=== PATIENT | male | born 1990 | race American Indian/Alaskan Native ===

== ENCOUNTER 2017-12-29 14:41 | Emergency (ER) | payer OTHER ==
[2017-12-29 14:52] VITALS: BP 148/64; PULSE 78; TEMP 98; BMI 34.2
--- NOTE | 2017-12-29 14:53 | PDOC ---
Rapid Medical Evaluation Chief Complaint: Cold Symptoms Time Seen by Provider: 12/29/17 14:50 Medical Evaluation: Allergies Allergy/AdvReac Type Severity Reaction Status Date / Time Sulfa (Sulfonamide Allergy Mild Hives Verified 12/29/17 14:48 Antibiotics) [Sulfa(Sulfonamide Antibiotics)] 12/29/17 14:52 I have performed a brief in-person evaluation of this patient. The patient presents with a chief complaint of: cough with naal congestion X 1wk Pertinent physical exam findings: CTA, S1/S2, RRR I have ordered the following:none The [facility] Discharge Disposition - Referrals Referrals: Regino Juarez [Primary Care Provider] - - Patient Instructions - Post Discharge Activity
--- NOTE | 2017-12-29 16:09 | PDOC ---
History of Present Illness - General Chief Complaint: Cold Symptoms Stated Complaint: LEFT ARM PAIN Time Seen by Provider: 12/29/17 14:50 History Source: Patient Exam Limitations: No Limitations - History of Present Illness Initial Comments: 12/29/17 16:04 Patient is here with complaints of left arm pain and associated cold symptoms. States has been sneezing and coughing for approximately one week without fevers. Smokes less than a pack a day Timing/Duration: reports: intermittent Severity: reports: mild Associated Symptoms: reports: fever/chills, headache, nasal congestion Past History - Travel Traveled outside of the country in the last 30 days: No Close contact w/someone who was outside of country & ill: No - Past Medical History Allergies/Adverse Reactions: Allergies Allergy/AdvReac Type Severity Reaction Status Date / Time Sulfa (Sulfonamide Allergy Mild Hives Verified 12/29/17 14:48 Antibiotics) [Sulfa(Sulfonamide Antibiotics)] Home Medications: Ambulatory Orders Azithromycin [Zithromax -] 250 mg PO UTDICT #6 tab 12/29/17 COPD: No DVT: No Dementia: No GI Disorders: Yes (GALLSTONES) - Surgical History Cholecystectomy: Yes (2011) - Immunization History Td Vaccination: (unknown) Immunization Up to Date: Yes - Suicide/Smoking/Psychosocial Hx Smoking Status: Yes Smoking History: Current every day smoker Years of Tobacco Use: 6 Number of Cigarettes Smoked Daily: 10 Cigars Per Day: 0 Information on smoking cessation initiated: Yes 'Breaking Loose' booklet given: 12/29/17 Hx Alcohol Use: No Drug/Substance Use Hx: No Substance Use Type: None Hx Substance Use Treatment: No Respiratory Specific PMHX - Complaint Specific PMHX Angina: No Review of Systems - Review of Systems Able to Perform ROS?: Yes Is the patient limited [place]an proficient: Yes Constitutional: Yes: Symptoms Reported, See HPI, Loss of Appetite, Malaise. No : Chills, Fever HEENTM: Yes: See HPI. No: Symptoms Reported Respiratory: Yes: Symptoms reported, See HPI, Cough (with yellow phlegm ). No: Wheezing Musculoskeletal: Yes: Symptoms Reported, See HPI, Joint Pain All Other Systems: Reviewed and Negative *Physical Exam - Vital Signs Last Vital Signs Temp Pulse Resp BP Pulse Ox 98.0 F 78 18 148/64 100 12/29/17 14:49 12/29/17 14:49 12/29/17 14:49 12/29/17 14:49 12/29/17 14:49 - Physical Exam General Appearance: Yes: Nourished, Appropriately Dressed. No: Apparent Distress HEENT: positive: DENNY, TMs Normal (bilateral congestion with poor landmarks noted and some dusky discoloration), Pharynx Normal, Nasal Congestion, Rhinorrhea, Sinus Tenderness (frontal sinus tenderness). negative: Normal ENT Inspection Neck: positive: Supple. negative: Tender, Lymphadenopathy (R), Lymphadenopathy (L) Respiratory/Chest: positive: Lungs Clear (but coarse insp and exp breathsounds ) Gastrointestinal/Abdominal: positive: Normal Bowel Sounds, Soft. 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, Fully Oriented, Alert, Normal Mood/ Affect, Normal Response, Motor Strength 5/5 Heart Score/ECG Review - ECG Intrepretation Rhythm: Regular Rhythm - ST and T Non Specific ST-T Wave changes: No - ECG Impressions Normal ECG: Yes Non-specific ST Elevation: No Ischemic Changes: No *DC/Admit/Observation/Transfer Diagnosis at time of Disposition: Bronchitis - Discharge Dispostion Disposition: HOME Condition at time of disposition: Stable Decision to Admit order: No - Referrals Referrals: Regino Juarez [Primary Care Provider] - - Patient Instructions Printed Discharge Instructions: DI for Acute Bronchitis Additional Instructions: Rest, drink lots of fluids: Teas, water, soups, Pedialyte Saltwater gargles Steamy showers/seem to face break up mucus Avoid contact with others until fevers and cough resolved Lots of handwashing and good hygiene Continue [id number]-[id number]-brfpxsy medications for symptomatic relief Tylenol or Motrin for fever and pain Start azithromycin for worsened fevers, purulent drainage cough production, headache earache or sore throat pain worsens. Followup with private physician in one to 2 days as needed Return to emergency department for worsened symptoms, fevers, dehydration - Post Discharge Activity Forms/Work/School Notes: Back to Work
--- NOTE | 2017-12-31 13:06 | EKG ---
Test Reason : Blood Pressure : / mmHG Vent. Rate : 072 BPM Atrial Rate : 072 BPM P-R Int : 152 ms QRS Dur : 102 ms QT Int : 386 ms P-R-T Axes : 017 049 029 degrees QTc Int : 422 ms NORMAL SINUS RHYTHM NORMAL ECG WHEN COMPARED WITH ECG OF 14-APR-2013 17:13, NO SIGNIFICANT CHANGE WAS FOUND Confirmed by MARK FAIRBANKS MD ([id number]) on 12/31/2017 1:06:20 PM Referred By: VALERIE Confirmed By:MARK FAIRBANKS MD
== END 2017-12-29 16:27 | disposition home or self-care (01) ==
LOC: JERFT 14:41
DX: J40 Bronchitis, not specified as acute or chronic (principal); F17.210 Nicotine dependence, cigarettes, uncomplicated; Z88.1 Allergy status to other antibiotic agents
CPT/HCPCS: 93005; 93010; 99281-25

== ENCOUNTER 2018-04-28 17:19 | Emergency (ER) | payer OTHER ==
[2018-04-28 17:29] VITALS: BP 141/89; PULSE 80; TEMP 98; BMI 33.6
--- NOTE | 2018-04-28 17:31 | PDOC ---
Rapid Medical Evaluation Chief Complaint: Injury Time Seen by Provider: 04/28/18 17:29 Medical Evaluation: Allergies Allergy/AdvReac Type Severity Reaction Status Date / Time Sulfa (Sulfonamide Allergy Mild Hives Verified 04/28/18 17:25 Antibiotics) [Sulfa(Sulfonamide Antibiotics)] Vital Signs Temp Pulse Resp BP Pulse Ox 98.0 F 80 20 141/89 100 04/28/18 17:25 04/28/18 17:25 04/28/18 17:25 04/28/18 17:25 04/28/18 17:25 04/28/18 17:29 I have performed a brief in-person evaluation of this patient. The patient presents with a chief complaint of: pain and swelling to left great toe s/p heavy object falling on toe while at work Pertinent physical exam findings: moderate tenderness to left great toe. mild tenderness to left great toe I have ordered the following: left foot and toe X-ray The patient will proceed to the ED for further evaluation. Discharge Disposition - Diagnosis Toe injury Qualifiers: Encounter type: initial encounter Laterality: left Qualified Code(s): S99.922A - Unspecified injury of left foot, initial encounter - Referrals - Patient Instructions - Post Discharge Activity
--- NOTE | 2018-04-28 18:13 | PDOC ---
History of Present Illness - General Chief Complaint: Injury Stated Complaint: LEFT FOOT INJURY ON THE JOB Time Seen by Provider: 04/28/18 17:29 - History of Present Illness Initial Comments: 04/28/18 18:08 27-year-old male without comorbidities presents for evaluation of left great toe pain. He states at work earlier today he dropped a piece of large plywood on his left great toe. He complains of pain to the area. Past History - Past Medical History Allergies/Adverse Reactions: Allergies Allergy/AdvReac Type Severity Reaction Status Date / Time Sulfa (Sulfonamide Allergy Mild Hives Verified 04/28/18 17:25 Antibiotics) [Sulfa(Sulfonamide Antibiotics)] Home Medications: Ambulatory Orders NK [No Known Home Medication] 04/28/18 COPD: No DVT: No Dementia: No GI Disorders: Yes (GALLSTONES) - Surgical History Cholecystectomy: Yes (2011) - Immunization History Td Vaccination: (unknown) Immunization Up to Date: Yes - Suicide/Smoking/Psychosocial Hx Smoking Status: Yes Smoking History: Current every day smoker Years of Tobacco Use: 6 Have you smoked in the past 12 months: Yes Number of Cigarettes Smoked Daily: 10 Cigars Per Day: 0 Information on smoking cessation initiated: No 'Breaking Loose' booklet given: 12/29/17 Hx Alcohol Use: No Drug/Substance Use Hx: No Substance Use Type: None Hx Substance Use Treatment: No Review of Systems - Review of Systems Musculoskeletal: Yes: See HPI, Joint Pain All Other Systems: Reviewed and Negative *Physical Exam - Vital Signs Last Vital Signs Temp Pulse Resp BP Pulse Ox 98.0 F 80 20 141/89 100 04/28/18 17:25 04/28/18 17:25 04/28/18 17:25 04/28/18 17:25 04/28/18 17:25 - Physical Exam Comments: 04/28/18 18:10 Left foot skin color and temperature are normal does swelling about the great left toe with associated tenderness no gross sensory deficits IPJ of the left toe has decreased range of motion secondary to pain and stiffness. Neurovascularly intact Medical Decision Making - Medical Decision Making 04/28/18 18:11 There is an oblique fracture at the distal phalanx of the great toe. Is a small fracture at the medial base of the bone as well. [place] shoe weight-bear as tolerated with crutches follow-up with orthopedics *DC/Admit/Observation/Transfer Diagnosis at time of Disposition: Toe fracture Toe injury Qualifiers: Encounter type: initial encounter Laterality: left Qualified Code(s): S99.922A - Unspecified injury of left foot, initial encounter - Discharge Dispostion Disposition: HOME Condition at time of disposition: Stable Decision to Admit order: No - Referrals Referrals: Sukhi Bates MD [Staff Physician] - - Patient Instructions Printed Discharge Instructions: Toe Fracture, DI for Toe Fracture Additional Instructions: He may take Tylenol and Motrin for pain. Follow-up with orthopedics in 2-3 days for further evaluation and treatment options. Return to the emergency room should symptoms worsen or go unresolved. He may weight-bear as tolerated with use of a [place] shoeing crutches. - Post Discharge Activity
== END 2018-04-28 18:41 | disposition home or self-care (01) ==
LOC: JERFT 17:19
DX: S92.422A Displaced fracture of distal phalanx of left great toe, initial encounter for closed fracture (principal); S82.892A Other fracture of left lower leg, initial encounter for closed fracture; W20.8XXA Other cause of strike by thrown, projected or falling object, initial encounter; Y93.89 Activity, other specified; Y92.69 Other specified industrial and construction area as the place of occurrence of the external cause; Y99.0 Civilian activity done for income or pay
CPT/HCPCS: 73630-TC-LT; 73660-TC-LT-FY; 99281-25

== ENCOUNTER 2020-01-14 19:00 | Emergency (ER) | payer SELFPAY ==
--- NOTE | 2020-01-14 19:05 | PDOC ---
Rapid Medical Evaluation Time Seen by Provider: 01/14/20 19:02 Medical Evaluation: Allergies Allergy/AdvReac Type Severity Reaction Status Date / Time Sulfa (Sulfonamide Allergy Mild Hives Verified 12/09/19 12:43 Antibiotics) [Sulfa(Sulfonamide Antibiotics)] 01/14/20 19:03 CC: left shoulder and arm heaviness, tingling to 4th and 5th digit Exam: FROM of arm 5/5 strength Plan: ekg Discharge Disposition - Diagnosis Left arm pain - Referrals - Patient Instructions - Post Discharge Activity
[2020-01-14 19:14] VITALS: BP 139/88; PULSE 91; TEMP 98; BMI 34.2
--- NOTE | 2020-01-14 19:25 | PDOC ---
History of Present Illness - General Chief Complaint: Pain, Acute Stated Complaint: CHEST PAIN/ ARM TINGLING Time Seen by Provider: 01/14/20 19:02 History Source: Patient - History of Present Illness Occurred: reports: other Severity: reports: mild Upper Extremity Pain Location: right: shoulder Method of Injury: denies: fell Past History - Medical History Allergies/Adverse Reactions: Allergies Allergy/AdvReac Type Severity Reaction Status Date / Time Sulfa (Sulfonamide Allergy Mild Hives Verified 01/14/20 19:06 Antibiotics) [Sulfa(Sulfonamide Antibiotics)] Home Medications: Ambulatory Orders NK [No Known Home Medication] 04/28/18 COPD: No DVT: No Dementia: No GI Disorders: Yes (GALLSTONES) - Surgical History Cholecystectomy: Yes (2011) - Immunization History Td Vaccination: (unknown) Immunization Up to Date: Yes - Psycho-Social/Smoking History Smoking Status: Yes Smoking History: Current every day smoker Years of Tobacco Use: 6 Have you smoked in the past 12 months: Yes Number of Cigarettes Smoked Daily: 10 Cigars Per Day: 0 Information on smoking cessation initiated: No 'Breaking Loose' booklet given: 12/29/17 - Substance Abuse Hx (Audit-C & DAST Scrn) How often the patient has a drink containing alcohol: 2-4 times / month Score: In Men: 4 or > Positive; In Women: 3 or > Positive: 2 Screen Result (Pos requires Nsg. Audit-10AR): Negative Review of Systems - Review of Systems Constitutional: No: Chills, Fever Respiratory: No: Shortness of Breath Cardiac (ROS): Yes: Chest Pain. No: Lightheadedness, Palpitations Musculoskeletal: Yes: Joint Pain. No: Joint Stiffness Neurological: Yes: Tingling. No: Numbness, Weakness *Physical Exam - Vital Signs Last Vital Signs Temp Pulse Resp BP Pulse Ox 98 F 91 H 18 139/88 100 01/14/20 19:03 01/14/20 19:03 01/14/20 19:03 01/14/20 19:03 01/14/20 19:03 - Physical Exam General Appearance: Yes: Appropriately Dressed. No: Apparent Distress HEENT: positive: Normal Voice Neck: positive: Supple Respiratory/Chest: positive: Lungs Clear, Normal Breath Sounds. negative: Respiratory Distress Cardiovascular: positive: Regular Rate, S1, S2 Extremity: positive: Normal Inspection, Normal Range of Motion. negative: Tender, Swelling Integumentary: positive: Dry, Warm Neurologic: positive: Fully Oriented, Alert, Normal Mood/Affect, Motor Strength 5/5. negative: Numbness, Sensory Deficit Medical Decision Making - Medical Decision Making 01/14/20 19:17 29 yo M, smoker, here w/ L shoulder pain r/t chest on and off x 5 days, regardless of position, mild. Also reports tingling of R fingers. No numbness, UE weakness or neck pain. No sob, diaphoresis, n/v or palpitations. No h/o same. No trauma see exam L shoulder pain Possible radiculopathy Will get EKG given radiation to chest in a smoker PERCs out -Anticipate dc w/ PMD f/u 01/14/20 19:36 EKG wnl. Pt stable for dc w/ PMD f/u. OTC prn pain Discharge - Discharge Information Problems reviewed: Yes Clinical Impression/Diagnosis: Shoulder pain Qualifiers: Chronicity: acute Laterality: left Qualified Code(s): M25.512 - Pain in left shoulder Condition: Good - Follow up/Referral - Patient Discharge Instructions Patient Printed Discharge Instructions: DI for Shoulder Pain Additional Instructions: Please follow up with your PMD if symptoms persist - Post Discharge Activity
--- NOTE | 2020-01-15 11:35 | EKG ---
Test Reason : Blood Pressure : / mmHG Vent. Rate : 071 BPM Atrial Rate : 071 BPM P-R Int : 162 ms QRS Dur : 104 ms QT Int : 396 ms P-R-T Axes : 050 053 027 degrees QTc Int : 430 ms NORMAL SINUS RHYTHM WITH SINUS ARRHYTHMIA NORMAL ECG WHEN COMPARED WITH ECG OF 09-DEC-2019 13:14, NO SIGNIFICANT CHANGE WAS FOUND Confirmed by ALEIDA GALARZA MD ([id number]) on 01/15/2020 11:35:15 AM Referred By: Confirmed By:ALEIDA GALARZA MD
== END 2020-01-14 19:40 | disposition home or self-care (01) ==
LOC: JERFT 19:00 → JER 19:00 → JERFT 19:40
DX: M79.602 Pain in left arm (principal)
CPT/HCPCS: 93005; 93010; 99284-25

== ENCOUNTER 2021-08-23 20:09 | Emergency (ER) | payer SELFPAY ==
[2021-08-23 20:25] VITALS: BP 127/84; TEMP 98.5; BMI 34.2
[2021-08-23] MEDS ORDERED: SODIUM CHLORIDE 0.9% 500 ML INFUS.BAG IV ONE (20:53)
[2021-08-23 21:42] LABS: BASO % 0.4 % (0-2.0); EOS % 3.5 % (0-4.5); HEMATOCRIT 43.5 % (35.4-49); HEMOGLOBIN 14.2 GM/dL (11.7-16.9); MCH 26.6 pg (25.7-33.7); MCHC 32.6 g/dl (32.0-35.9); MEAN CELL VOLUME 81.8 fl (80-96); MEAN PLT VOLUME 8.9 fl (7.5-11.1); MONO % 6.6 % (3.8-10.2); NEUT % 51.5 % (42.8-82.8); PLATELET COUNT 230 10^3/uL (134-434); RBC 5.32 M/mm3 (4.00-5.60); RDW 13.8 % (11.9-15.9); WHITE BLOOD COUNT 8.4 K/mm3 (4.0-10.0)
[2021-08-23 21:51] LABS: INR 1.1 (0.83-1.09); PROTHROMBIN TIME (PATIENT) 12.7 SEC (9.7-13.0)
[2021-08-23 22:02] LABS: CALCIUM 9.1 mg/dL (8.5-10.1)
[2021-08-23 22:04] LABS: ALBUMIN 3.8 g/dl (3.4-5.0); BLOOD UREA NITROGEN 13.1 mg/dL (7-18); MAGNESIUM 2.1 mg/dL (1.8-2.4)
[2021-08-23 22:09] LABS: BILIRUBIN,TOTAL 0.7 mg/dL (0.2-1); TOT PROT 7.3 g/dl (6.4-8.2)
[2021-08-23 22:44] VITALS: PULSE 83
== END 2021-08-23 23:03 | disposition home or self-care (01) ==
LOC: JER 20:09
DX: R00.2 Palpitations (principal)
CPT/HCPCS: 36415; 71046-TC-FY; 80053; 83735; 84443; 84484; 85025; 85610; 93005; 93010; 99285-25

== ENCOUNTER 2022-02-25 16:49 | Emergency (ER) | payer OTHER ==
[2022-02-25 17:05] VITALS: BP 145/84; PULSE 78; RESP 18; TEMP 98.1; BMI 29.7
[2022-02-25] MEDS ORDERED: IBUPROFEN 600 MG TABLET (FP) PO ONE ×2 (17:33→17:54)
== END 2022-02-25 18:49 | disposition home or self-care (01) ==
LOC: JERFT 16:49 → JER 16:49 → JERFT 18:49
DX: S80.12XA Contusion of left lower leg, initial encounter (principal)
CPT/HCPCS: 73590-TC-LT-FY; 99284-25

== ENCOUNTER 2022-05-12 08:43 | Emergency (ER) | payer OTHER ==
[2022-05-12 09:01] VITALS: BP 140/88; PULSE 87; RESP 18; TEMP 98.2; BMI 33.6
== END 2022-05-12 12:37 | disposition home or self-care (01) ==
LOC: JER 08:43
DX: H66.90 Otitis media, unspecified, unspecified ear (principal)
CPT/HCPCS: 99283-25

== ENCOUNTER 2024-11-14 04:14 | Emergency (ER) | payer OTHER ==
[2024-11-14 04:24] VITALS: BP 145/107; PULSE 71; RESP 20; TEMP 98.1; BMI 31.6
[2024-11-14] MEDS: carBAMazepine 200 MG TABLET PO ONE (05:54)
== END 2024-11-14 07:25 | disposition home or self-care (01) ==
LOC: JER 04:14
DX: G50.0 Trigeminal neuralgia (principal)
CPT/HCPCS: 70140-TC-FY; 99283-25

== ENCOUNTER 2024-11-17 21:38 | Emergency (ER) | payer OTHER ==
[2024-11-17 21:48] VITALS: RESP 18; BMI 31.6
[2024-11-17 22:16] VITALS: BP 141/92; PULSE 80; TEMP 98.2
[2024-11-17] MEDS ORDERED: DEXAMETHASONE SOD PHOSPHATE 10 MG/1 ML VIAL ONE (22:22)
[2024-11-17] MEDS ORDERED: METOCLOPRAMIDE HCL INJECTION 10 MG/2 ML VIAL ONE (22:22)
[2024-11-17] MEDS: SODIUM CHLORIDE 0.9% 1000 ML INFUS.BAG IV ONE (22:29)
[2024-11-17] MEDS: METOCLOPRAMIDE HCL INJECTION 10 MG/2 ML VIAL IVPB ONE (22:29)
[2024-11-17] MEDS: DEXAMETHASONE SOD PHOSPHATE 20 MG/5 ML VIAL IVPB ONE (22:29)
[2024-11-17] MEDS ORDERED: PSEUDOEPHEDRINE HCL 30 MG TABLET ONE (22:30)
[2024-11-17] MEDS: PSEUDOEPHEDRINE HCL 60 MG TABLET PO ONE (22:33)
== END 2024-11-17 23:32 | disposition home or self-care (01) ==
LOC: FER 21:38
PROC: 3E033GC Introduction of Other Therapeutic Substance into Peripheral Vein, Percutaneous Approach (ICD-10-PCS; principal; 2024-11-17)
PROC: 3E033GC Introduction of Other Therapeutic Substance into Peripheral Vein, Percutaneous Approach (ICD-10-PCS; 2024-11-17)
DX: J01.10 Acute frontal sinusitis, unspecified (principal); R51.9 Headache, unspecified; K02.9 Dental caries, unspecified; J34.3 Hypertrophy of nasal turbinates
CPT/HCPCS: 99284-25